=== PATIENT | female | born 1960 | race Caucasian/White ===

== ENCOUNTER 2021-11-19 16:19 | Inpatient (IN) | payer BC ==
[~2021-11-19] VITALS: Ht 160 cm; Wt 61.4 kg
[2021-11-19 18:04] LABS: BASOPHILS % (AUTO) 0.3 % (0-1); EOSINOPHILS # (AUTO) 0.2 X10'3 (0-0.9); EOSINOPHILS % (AUTO) 2.4 % (0-6); HEMATOCRIT 37.2 % (35.0-45.0); HEMOGLOBIN 12.4 g/dl (12.0-16.0); LYMPHOCYTES # (AUTO) 1.5 X10'3 (1.1-4.8); LYMPHOCYTES % (AUTO) 21.8 % (21-51); MEAN CORPUSCULAR HEMOGLOBIN 30.2 PG (27.0-31.0); MEAN CORPUSCULAR HGB CONC 33.2 g/dL (33.0-36.5); MEAN PLATELET VOLUME 8.4 FL (7.4-10.4); MONOCYTES # (AUTO) 0.8 X10'3 (0-0.9); MONOCYTES % (AUTO) 12.1 % (2-12); NEUTROPHILS # (AUTO) 4.3 X10'3 (1.8-7.7); NEUTROPHILS % (AUTO) 63.4 % (42-75); PLATELET COUNT 425 X10'3 (140-440); RED BLOOD COUNT 4.09 X10'6 (4.20-5.60); WHITE BLOOD COUNT 6.8 X10'3 (4.5-11.0)
[2021-11-19 18:14] LABS: ALANINE AMINOTRANSFERASE 18 U/L (12-78); ALBUMIN 3.4 G/DL (3.4-5.0); ALBUMIN/GLOBULIN RATIO 0.8 (1.1-1.5); ALKALINE PHOSPHATASE 105 IU/L (46-116); ANION GAP 9 (8-16); ASPARTATE AMINO TRANSFERASE 23 U/L (10-37); BILIRUBIN,TOTAL 0.4 MG/DL (0.1-1.0); BLOOD UREA NITROGEN 22 MG/DL (7-18); BUN/CREATININE RATIO 24.4 (6.6-38.0); CHLORIDE 107 MMOL/L (99-107); GLUCOSE 113 MG/DL (70-104); POTASSIUM 3.5 MMOL/L (3.5-5.1); SODIUM 141 MMOL/L (135-145); TOTAL CARBON DIOXIDE 24.9 MMOL/L (24-32); TOTAL PROTEIN 7.5 G/DL (6.4-8.2); eGFR 64 ML/MIN
[2021-11-19] MEDS ORDERED: magnesium 2GM in 50ml NS 50 ML IV PRN (20:50)
[2021-11-19] MEDS ORDERED: HYDROcodone/acetaminophen 5mg/325mg tablet PO PRN (20:50)
[2021-11-19] MEDS ORDERED: acetaminophen 325mg tablet PO PRN ×2 (20:50)
[2021-11-19] MEDS ORDERED: nitroGLYCERIN 0.4mg SUBLingual tab SL PRN (20:50)
[2021-11-19] MEDS: normal saline 1000ml 1,000 ML IV SCH (20:50)
[2021-11-19] MEDS ORDERED: magnesium Cl slow-release 64mg tablet PO PRN (20:50)
[2021-11-19] MEDS ORDERED: HYDROcodone/acetaminophen 10/325mg tab PO PRN (20:50)
[2021-11-19] MEDS ORDERED: magnesium 4gm in 100ml NS 100 ML IV PRN (20:50)
[2021-11-19] MEDS ORDERED: morphine 2 MG/ML inj. syringe IV PRN ×2 (20:50)
[2021-11-19] MEDS ORDERED: regadenoson 0.4mg/5ml syringe IV PRN (20:50)
[2021-11-19] MEDS ORDERED: potassium CL 10mEq/100ml bag 100 ML IV PRN (20:50)
[2021-11-19] MEDS ORDERED: aminophylline 500mg/20ml vial IV PRN (20:50)
[2021-11-19] MEDS ORDERED: metoprolol tartrate 1mg/ml inj IV PRN (20:50)
[2021-11-19] MEDS ORDERED: ondansetron/PF 4mg/2ml inj IV PRN (20:50)
[2021-11-19] MEDS ORDERED: POTASSIUM BICARB 20meq eff tab 20 MEQ TABLET.EFF PO PRN ×2 (20:50)
[2021-11-19] MEDS ORDERED: temazepam 15mg capsule PO PRN (21:00)
[2021-11-19 21:15] LABS: D-DIMER 0.71 MG/L FEU (0-0.50)
[2021-11-19] MEDS ORDERED: aminophylline 250mg/10ml inj. IV PRN (21:25)
[2021-11-19] MEDS ORDERED: ADV50100 PO (22:18)
[2021-11-20] VITALS (11 sets, daily range): BP systolic 101–128; BP diastolic 63–75
[2021-11-20] MEDS: normal saline 1000ml 1,000 ML IV SCH (01:02)
--- NOTE | 2021-11-20 06:40 | NUR ---
Patient in room PCU 3016. I have received report from COLIN Velasquez and had the opportunity to ask questions and assume patient care.
[2021-11-20 06:51] LABS: BASOPHILS % (AUTO) 0.7 % (0-1); EOSINOPHILS # (AUTO) 0.2 X10'3 (0-0.9); EOSINOPHILS % (AUTO) 5.8 % (0-6); HEMATOCRIT 35.1 % (35.0-45.0); HEMOGLOBIN 11.5 g/dl (12.0-16.0); LYMPHOCYTES # (AUTO) 1.3 X10'3 (1.1-4.8); MEAN CORPUSCULAR HEMOGLOBIN 29.9 PG (27.0-31.0); MEAN CORPUSCULAR HGB CONC 32.7 g/dL (33.0-36.5); MEAN CORPUSCULAR VOLUME 91.4 FL (78-98); MEAN PLATELET VOLUME 8.6 FL (7.4-10.4); MONOCYTES # (AUTO) 0.6 X10'3 (0-0.9); MONOCYTES % (AUTO) 14.9 % (2-12); NEUTROPHILS # (AUTO) 2.1 X10'3 (1.8-7.7); NEUTROPHILS % (AUTO) 48.6 % (42-75); PLATELET COUNT 338 X10'3 (140-440); RED BLOOD COUNT 3.85 X10'6 (4.20-5.60); WHITE BLOOD COUNT 4.2 X10'3 (4.5-11.0)
[2021-11-20 06:52] LABS: ALANINE AMINOTRANSFERASE 17 U/L (12-78); ALBUMIN 2.9 G/DL (3.4-5.0); ALBUMIN/GLOBULIN RATIO 0.8 (1.1-1.5); ALKALINE PHOSPHATASE 86 IU/L (46-116); ANION GAP 10 (8-16); ASPARTATE AMINO TRANSFERASE 21 U/L (10-37); BILIRUBIN,TOTAL 0.4 MG/DL (0.1-1.0); BLOOD UREA NITROGEN 16 MG/DL (7-18); BUN/CREATININE RATIO 27.1 (6.6-38.0); CALCIUM 8.5 MG/DL (8.5-10.1); CHLORIDE 109 MMOL/L (99-107); CHOL/HDL RATIO 2.3 (0.00-4.99); CHOLESTEROL 142 MG/DL (0-200); CREATININE 0.59 MG/DL (0.40-0.90); GLUCOSE 88 MG/DL (70-104); HDL CHOLESTEROL 63 MG/DL (35-60); LDL CHOLESTEROL 66 MG/DL (50-100); POTASSIUM 3.6 MMOL/L (3.5-5.1); SODIUM 142 MMOL/L (135-145); TOTAL CARBON DIOXIDE 22.8 MMOL/L (24-32); TOTAL PROTEIN 6.5 G/DL (6.4-8.2); TRIGLYCERIDES 29 MG/DL (20-135); eGFR > 90 ML/MIN
[2021-11-20] MEDS ORDERED: K and/or MAG REPLACEMENT MC SCH (08:00)
[2021-11-20] MEDS ORDERED: pantoprazole 40MG/NS 100ML BAG 100 ML IV SCH (08:00)
[2021-11-20] MEDS ORDERED: heparin, porcine 5000 units/ml vial SQ SCH (08:00)
[2021-11-20] MEDS ORDERED: ADV50100 PO (13:32)
[2021-11-20] MEDS ORDERED: ALBU8.5H17 INH (13:32)
--- NOTE | 2021-11-20 14:25 | NUR ---
DC inst provided to pt & pt's friend. IV DC'd, tip intact. All belongings sent w/pt. Pt ambulated to vehicle.
== END 2021-11-20 14:25 | disposition home or self-care (01) | DRG 313 ==
LOC: ER 16:20 → ED HOLD 20:57 → EDBEDREQ 21:26 → PCU 3S 23:59
PROVIDERS: ADMIT Internal Medicine; ATTEND Family Medicine
PROC: B32T1ZZ Computerized Tomography (CT Scan) of Left Pulmonary Artery using Low Osmolar Contrast (ICD-10-PCS; 2021-11-19)
PROC: B3201ZZ Computerized Tomography (CT Scan) of Thoracic Aorta using Low Osmolar Contrast (ICD-10-PCS; 2021-11-19)
PROC: B32S1ZZ Computerized Tomography (CT Scan) of Right Pulmonary Artery using Low Osmolar Contrast (ICD-10-PCS; 2021-11-19)
PROC: 4A02XM4 Measurement of Cardiac Total Activity, External Approach (ICD-10-PCS; principal; 2021-11-20)
PROC: 3E033HZ Introduction of Radioactive Substance into Peripheral Vein, Percutaneous Approach (ICD-10-PCS; 2021-11-20)
DX: R07.89 Other chest pain (principal); J45.901 Unspecified asthma with (acute) exacerbation; E03.9 Hypothyroidism, unspecified; E04.1 Nontoxic single thyroid nodule; K21.9 Gastro-esophageal reflux disease without esophagitis; Z82.49 Family history of ischemic heart disease and other diseases of the circulatory system; Z88.0 Allergy status to penicillin
CPT/HCPCS: 36415; 71045; 71275; 78452; 80053; 80061; 83880; 84439; 84443; 84484; 85025; 85379; 87081; 93017; 93306; 99285; A9500; C9113; G0378; J2785; J3490; J7030